=== PATIENT | male | born 1980 | race Two or more races ===

== ENCOUNTER 2017-02-12 10:47 | Emergency (ER) | payer SELFPAY ==
--- NOTE | ~2017-02-12 | CR72 ---
[facility] A Service of [facility] RADIOLOGY TEXT RESULTS PATIENT: KEVIN RIVERA LOCATION: [facility] : 78 UNIT #: [id number] AGE: [address]: Lalito Miller MD SEX: M ORDER DR: [id number] [facility] [address] [place], [place] [address] [id number] E MR#: [id number] Acc #: [id number] NAME: KEVIN RIVERA : 1980 SEX: M STUDY DATE/TIME: 02/12/2017 11:56 UNIT: [facility] ROOM: STUDY DESCRIPTION: CR Chest Single View Portable Attending Physician: Lalito Miller M.D. Ordering Physician: Lalito Miller M.D. Primary Care Physician: No Primary Care Physician MEDICAL IMAGING REPORT This report is preliminary unless electronic signature is present EXAM Portable chest, 02/12/2017. HISTORY 36-year-old male with cough and congestion for 3 days. COMPARISON None FINDINGS Frontal chest demonstrates clear lungs. No pleural effusion or pneumothorax. Heart size and mediastinum are normal. Pulmonary vasculature normal. IMPRESSION No acute cardiopulmonary findings. Dictated by... Pako Nix M.D. THIS IS AN ELECTRONICALLY VERIFIED REPORT Pako Nix M.D. at 02/13/2017 6:23 AM DALIA/josselin TD: 02/12/2017 12:40 JOB #: [id number] MEDICAL IMAGING REPORT Page 1 of 1 COPY
== END 2017-02-12 15:00 | disposition home or self-care (01) ==
LOC: CED 10:47
DX: J98.01 Acute bronchospasm (principal); J06.9 Acute upper respiratory infection, unspecified
CPT/HCPCS: 71010; 94640; 99283